=== PATIENT | male | born 1945 | race Caucasian/White ===

== ENCOUNTER 2019-07-24 10:28 | Emergency (ER) | payer MEDICARE, SELFPAY ==
[2019-07-24] VITALS (20 sets, daily range): BP systolic 90–119; BP diastolic 46–70; PULSE 72–96; RESP 15–37; TEMP 36.6; O2SAT 79–98
--- NOTE | ~2019-07-24 | CT_ITS ---
EXAMINATION: CT brain wo con DATE: 07/24/2019 12:28 INDICATION: Syncope. TECHNIQUE: Computed tomography (CT) of the head was performed without intravenous contrast. The mA wa s adjusted according to patient size. Iterative reconstruction technique was employed. The dose-lengt h product was 605.33 mGy-cm. COMPARISON: None FINDINGS: There are scattered areas of low attenuation in the cerebral white matter. There are old la cunar infarcts in the right thalamus and bilateral basal ganglia. There is no intracranial hemorrhage , acute infarction, or abnormal intracranial mass lesion. The ventricles are normal in size. There is mild mucosal thickening in the paranasal sinuses. There are likely changes of ocular lens replacemen t surgeries. The mastoid air cells are normal. IMPRESSION: 1. Old lacunar infarcts in the right thalamus and bilateral basal ganglia. 2. Moderate nonspecific cerebral white matter disease, which likely represents chronic small vessel i schemic disease. Reviewed, dictated and finalized at location A. TBAND SETTER LOCKSTITCH IMPRESSION: 1. Old lacunar infarcts in the right thalamus and bilateral basal ganglia. 2. Moderate nonspecific cerebral white matter disease, which likely represents chronic small vessel ischemic disease.
--- NOTE | ~2019-07-24 | CT_ITS ---
EXAMINATION: CTA chest PE abdomen pel DATE: 07/24/2019 12:28 INDICATION: Chest and abdominal pain. TECHNIQUE: Computed tomography angiography (CTA) of the chest was performed with 100 mL Omnipaque-350 intravenous contrast timed to evaluate the pulmonary arteries. Coronal maximum intensity projection 3D-reconstructions were created by the technologist. Computed tomography (CT) of the abdomen and pelv is was performed with intravenous contrast. Automated exposure control and iterative reconstruction t echnique were employed. The dose-length product was 1116.91 mGy-cm. COMPARISON: CT abdomen and pelvis 03/19/2019 FINDINGS: CTA chest: The lungs demonstrate mild atelectasis. There is a small left posterior diaphragmatic dasha ia dictated anything fat. No pleural effusion. The heart size is normal. There is a small pericardial effusion. There are coronary artery calcifications. There is no pulmonary embolus. There is a right shoulder arthroplasty. There is mild thoracic spondylosis. CT abdomen and pelvis: There are cysts in the liver measuring up to 2.1 cm. There is mild intrahepati c biliary duct dilatation with pneumobilia. There is an internal biliary stent in expected position. There is a 2.4 x 1.8 cm mass in the head of the pancreas, stable from 03/19/2019. The body and tail o f the pancreas demonstrate atrophy and dilatation of the pancreatic duct to 6 mm. The spleen and adre nal glands are normal. There is cortical thinning of the kidneys. There is a 2.6 cm cyst in right kid grzegorz. The prostate is mildly enlarged. There is diverticulosis of the colon without evidence of divert iculitis. There are no dilated loops of bowel. The appendix is not visualized. There is a 10 x 17 mm peripancreatic node. There is no free intraperitoneal fluid. There is severe lumbar spondylosis. IMPRESSION: 1. No pulmonary embolus. 2. Stable 2.4 cm mass in the head of the pancreas, consistent with primary adenocarcinoma. 3. Stable mildly enlarged peripancreatic lymph node, which is indeterminate for metastatic disease. Reviewed, dictated and finalized at location A. LE POINTED OPERATOR IMPRESSION: 1. No pulmonary embolus. 2. Stable 2.4 cm mass in the head of the pancreas, consistent with primary missy ocarcinoma. 3. Stable mildly enlarged peripancreatic lymph node, which is indeterminate for metastatic disease.
--- NOTE | 2019-07-24 10:39 | ECG_ITS ---
Measurements Intervals [place] Rate: 93 P: -3 MI: 213 QRS: -34 QRSD: 118 T: 35 QT: 342 QTc: 425 Interpretive Statements SINUS RHYTHM WITH FIRST DEGREE AV BLOCK INTRAVENTRICULAR CONDUCTION DELAY BORDERLINE R WAVE PROGRESSION, ANTERIOR LEADS BORDERLINE ST ABNORMALITY- LATERAL LEADS BASELINE ARTIFACT- I, III, AVL ABNORMAL ECG Electronically Signed On 07-24-2019 10:52:22 SOLUTION DEVELOPER by Carlos Enrique Orozco D.O.
[2019-07-24 11:02] LABS: Basophils Percent Auto 0.2 % (0.2-1.2); Eosinophils Percent Auto 0.2 % (0-4.4); Hematocrit 37.9 % (42.0-52.0); Hemoglobin 12.3 g/dL (14.0-18.0); Immature Granulocyte Absolute 0.02 K/mm3 (0.00-0.031); Immature Granulocyte Percent A 0.2 % (0-0.5); Immature Platelet Fraction Pct 3.6 % (0.9-11.2); Lymphocytes Absolute Auto 0.29 K/mm3 (0.9-3.2); Lymphocytes Percent Auto 3.5 % (18.3-44.2); Mean Corpuscular HGB Conc 32.5 g/dl (32-36); Mean Corpuscular Hemoglobin 31.5 pg (26-34); Mean Corpuscular Volume 97.2 fl (80-100); Mean Platelet Volume 10.9 fl (7.4-10.4); Monocytes Percent Auto 11.8 % (2.6-8.5); Neutrophils Percent Auto 84.1 % (45.5-73.1); Platelet Count Result 107 k/mm3 (150-375); Red Cell Distribution Width 16.1 % (11.5-14.5); White Blood Count 8.4 K/mm3 (4.5-10.0)
[2019-07-24 11:25] LABS: Blood Urea Nitrogen 15 mg/dL (9-20); Calcium 8.8 mg/dL (8.4-10.2); Carbon Dioxide 23 mmol/L (22-30); Chloride 97 mmol/L (98-107); Estimated CRCL calculation 85 ml/min; Estimated Glomerular Filt Rate > 60; Glucose 175 mg/dL (75-110); Sodium 134 mmol/L (137-145)
--- NOTE | 2019-07-24 11:42 | ED.SYNCOPE ---
HPI - Syncope General Chief Complaint: Syncope Stated Complaint: syncopal episoide Time Seen by Provider: 07/24/19 11:27 Source: patient Mode of arrival: ambulatory Limitations: no limitations History of Present Illness HPI narrative: Pt is a 74 y/o male who presents to the ED, secondary to a syncopal episode that happened this morning while he was in the shower. He states that his legs got weak and he vomited liquid matter. Pt reports burning ABD pain since 1:30AM, but notes that he was feeling better when he got up this morning and went to shower. He states that his ABD pain was moving to his chest. He denies CP in the ED bed. Pt has a H/O pancreatic CA and is being treated with chemotherapy. Per family, pt has been in more pain since starting chemotherapy and his pain medicine is not helping. Pt denies hitting his head during the fall and reports LOC. Per spouse, pt bent over and fell in the shower and she does not think that the pt hit his head. Spouse denies pt having any shaking activity. This morning he had some water and drank a boost. He was able to urinate this morning. His oncologist is Dr. Sanchez at [facility]. He is not on any blood thinners and he denies a H/o cardiac problems, lung problems, or COPD. Pt denies leg swelling or leg pain. MD complaint: loss of consciousness Prodromal symptoms: nausea/vomiting and other (ABD pain, leg weakness) Witnessed: Yes - by Bystander Context: standing up (in shower) Injuries sustained associated with event: none Related Data Home Medications Medication Instructions Recorded Confirmed gabapentin 300 mg capsule 600 mg PO TID 05/02/19 hydrochlorothiazide 25 mg tablet 25 mg PO DAILY 05/02/19 sjfhlw-xiayyxrc-xbcpvrp 1 cap PO QID 05/02/19 24,000-76,000-120,000 unit capsule,delayed rel glimepiride 2 mg tablet 4 mg PO QAM 05/25/19 cholecalciferol (vitamin D3) 1,250 50,000 unit PO WEEKLY 06/11/19 mcg (50,000 unit) capsule ondansetron 8 mg disintegrating 8 mg PO Q12H 06/11/19 tablet potassium chloride 20 mEq 20 meq PO BID tablet 06/11/19 tablet,extended release sertraline 50 mg tablet 50 mg PO DAILY 06/11/19 hydroxyzine HCl 50 mg PO Q6-12H PRN 07/24/19 meloxicam 15 mg PO DAILY 07/24/19 prochlorperazine maleate 10 mg PO Q6H PRN 07/24/19 Allergies Allergy/AdvReac Type Severity Reaction Status Date / Time methotrexate Allergy Severe mouth/tongue Verified 07/24/19 11:08 swelling Review of Systems Review of Systems: Narrative: CONSTITUTIONAL: Reports decreased intake CARDIOVASCULAR: Denies chest pain GASTROINTESTINAL: Reports ABD pain and vomiting. GENITOURINARY: Denies urinary problems MUSCULOSKELETAL: Reports leg weakness. Denies leg pain or swelling NEUROLOGIC: Reports syncope All systems reviewed & are unremarkable except as noted in HPI and below PMFSH Past Medical History Medical History (Updated 07/24/19 @ 13:46 by Connie Mcnamara MD) Arthritis Colitis Diabetes mellitus HTN (hypertension) IBS (irritable bowel syndrome) Pancreatic adenocarcinoma Peripheral neuropathy Polio Surgical History Surgical History (Updated 07/24/19 @ 13:24 by Tk Levin) H/O bilateral cataract extraction History of ankle surgery History of appendectomy History of arthroscopy of left shoulder History of back surgery History of elbow surgery History of total bilateral knee replacement Hx of tonsillectomy Status post bilateral knee replacements Status post shoulder replacement Status post wrist surgery Social History Social History Years smoked: 50 Smoking status: Former smoker Tobacco type: cigars Second hand tobacco smoke exposure: No Smoking end date: 04/09/19 Alcohol intake: never Substance use: never Substance use type: does not use Gender identity (if verbalized by the patient): Male Exam Narrative: Exam Narrative: GENERAL: Well-appearing, well-nourished, and in
[2019-07-24 12:31] LABS: INR 1.1; Prothrombin Time 13.8 Seconds (11.1-14.7)
[2019-07-24 12:32] LABS: Partial Thromboplastin Time 35.5 SECONDS (22.3-36.8)
[2019-07-24 12:45] LABS: Alanine Aminotransferase 78 U/L (4-50); Albumin Level 3.1 g/dL (3.5-5.1); Alkaline Phosphatase 180 U/L (38-126); Aspartate Amino Transferase 113 U/L (17-59); Bilirubin,Total 2.2 mg/dL (0.2-1.3); Blood Urea Nitrogen 16 mg/dL (9-20); Calcium 8.5 mg/dL (8.4-10.2); Carbon Dioxide 23 mmol/L (22-30); Chloride 97 mmol/L (98-107); Estimated CRCL calculation 85 ml/min; Estimated Glomerular Filt Rate > 60; Glucose 185 mg/dL (75-110); Lipase 27 U/L (23-300); Sodium 132 mmol/L (137-145)
[2019-07-24 12:51] LABS: Troponin I < 0.012 ng/mL (0.000-0.034)
[2019-07-24 13:03] LABS: Potassium 3.9 mmol/L (3.4-5.0)
[2019-07-24 13:28] LABS: Add Urine Microscopic? YES; Appearance Urine Clear (Clear); Bacteria Urine Trace /hpf; Bilirubin Urine 1+ (Negative); Blood Urine Negative (Negative); Color Urine Amber (Yellow); Glucose Urine UA 1+ mg/dL (Negative); Ketones Urine Negative (Negative); Leukocyte Esterase Ur Negative LEU/UL (Negative); Mucus Urine Heavy /lpf; Nitrate Urine Negative (Negative); Protein Urine 1+ mg/dL (Negative); RBC Urine 0-2 /hpf (0-2); Squamous Epithelial Cell Urine Rare /hpf (Few)
[2019-07-24 13:30] LABS: Specific Grav Ur 1.033 (1.001-1.035)
[2019-07-24] MEDS: SODIUM CHLORIDE 0.9% IV 1,000 ML 999 ML IV CONT (13:35)
[2019-07-24] MEDS: MAG HYDROX/AL HYDROX/SIMETH 30 ML UDC (13:36)
[2019-07-24] MEDS: ONDANSETRON INJ 4 MG/2 ML VIAL IV PUSH (13:36)
[2019-07-24] MEDS: BELLADONNA ALK/PHENOB ELIX 10 ML, MAG HYDROX/ALUMINUM HYD/SIMETH 30 ML, LIDOCAINE HCL 2... PO (13:37)
== END 2019-07-24 14:20 | disposition home or self-care (01) ==
PROVIDERS: Emergency Provider Emergency Medicine; PCP Family Medicine
DX: I95.1 Orthostatic hypotension (principal); C25.0 Malignant neoplasm of head of pancreas; I10 Essential (primary) hypertension; E11.42 Type 2 diabetes mellitus with diabetic polyneuropathy; K58.9 Irritable bowel syndrome, unspecified; M19.90 Unspecified osteoarthritis, unspecified site; Z86.12 Personal history of poliomyelitis; Z98.42 Cataract extraction status, left eye; Z98.41 Cataract extraction status, right eye; Z96.653 Presence of artificial knee joint, bilateral; Z96.619 Presence of unspecified artificial shoulder joint; Z87.891 Personal history of nicotine dependence; I44.0 Atrioventricular block, first degree; I45.9 Conduction disorder, unspecified; R94.31 Abnormal electrocardiogram [ECG] [EKG]; R90.82 White matter disease, unspecified; R82.998 Other abnormal findings in urine
CPT/HCPCS: 36415; 70450; 71275; 74177; 80048; 80053; 81001; 83690; 84484; 85025; 85055; 85610; 85730; 87086; 87088; 93005; 96361; 96374; 99284; A9270; J2405; J7030; Q9967

== ENCOUNTER 2019-11-30 08:10 | Outpatient (CLI) | payer MEDICARE, SELFPAY ==
[2019-11-30 08:34] LABS: Hematocrit 38.2 % (42.0-52.0); Hemoglobin 12.4 g/dL (14.0-18.0); Mean Corpuscular HGB Conc 32.5 g/dl (32-36); Mean Corpuscular Hemoglobin 30.4 pg (26-34); Mean Corpuscular Volume 93.6 fl (80-100); Mean Platelet Volume 10.6 fl (7.4-10.4); Platelet Count Result 183 k/mm3 (150-375); Red Blood Count 4.08 M/mm3 (4.6-6.20); Red Cell Distribution Width 14.7 % (11.5-14.5); White Blood Count 4.3 K/mm3 (4.5-10.0)
[2019-11-30 08:47] LABS: Alanine Aminotransferase 19 U/L (4-50); Albumin Level 3.8 g/dL (3.5-5.1); Alkaline Phosphatase 154 U/L (38-126); Aspartate Amino Transferase 34 U/L (17-59); Bilirubin,Total 0.8 mg/dL (0.2-1.3); Blood Urea Nitrogen 12 mg/dL (9-20); Calcium 9.2 mg/dL (8.4-10.2); Carbon Dioxide 30 mmol/L (22-30); Chloride 97 mmol/L (98-107); Cholesterol 102 mg/dL (0-200); Estimated Glomerular Filt Rate > 60; Glucose 124 mg/dL (75-110); HDL Direct 25 mg/dL; Potassium 3.5 mmol/L (3.4-5.0); Sodium 135 mmol/L (137-145); Triglycerides 117 mg/dL (<150)
[2019-11-30 08:55] LABS: Hemoglobin A1C 6.1 % (<5.7)
[2019-11-30 08:58] LABS: LDL Cholesterol Direct 44 mg/dL
[2019-11-30 09:54] LABS: Add Urine Microscopic? YES; Appearance Urine Clear (Clear); Bilirubin Urine Negative (Negative); Blood Urine Negative (Negative); Calcium Oxalate Crystals Urine Present /hpf; Color Urine Yellow (Yellow); Glucose Urine UA Negative (Negative); Ketones Urine Negative (Negative); Leukocyte Esterase Ur Negative LEU/UL (NEGATIVE); Mucus Urine Few /lpf; Nitrate Urine Negative (Negative); Protein Urine Negative (Negative); RBC Urine 21-50 /hpf (0-2); Specific Grav Ur 1.016 (1.001-1.035); Squamous Epithelial Cell Urine Rare /hpf (Few); WBC Urine 21-30 /hpf (0-3)
== END 2019-11-30 08:11 | disposition home or self-care (01) ==
LOC: ANHLAB 08:12
PROVIDERS: PCP Family Medicine; Visit Provider Family Medicine
DX: E11.49 Type 2 diabetes mellitus with other diabetic neurological complication (principal); I10 Essential (primary) hypertension; E11.9 Type 2 diabetes mellitus without complications; R53.83 Other fatigue
CPT/HCPCS: 36415; 80053; 80061; 81001; 83036; 84443; 85027

== ENCOUNTER 2020-05-03 17:07 | Inpatient (IN) | payer MEDICARE, SELFPAY ==
[2020-05-03] VITALS (10 sets, daily range): BP systolic 85–125; BP diastolic 53–76; PULSE 77–123; RESP 16–25; TEMP 36.1–36.2; O2SAT 95–100; BMI 20.7
--- NOTE | ~2020-05-03 | CT_ITS ---
EXAMINATION: CTA chest PE protocol DATE: 05/03/2020 19:04 INDICATION: Shortness of breath, syncope, history of pancreatic cancer TECHNIQUE: Computed tomography angiography (CTA) of the chest was performed with 100 mL Omnipaque-350 intravenous contrast timed to evaluate the pulmonary arteries. Coronal maximum intensity projection 3D-reconstructions were created by the technologist. The dose-length product (DLP) was 262.16 mGy-cm. Automated exposure control and iterative reconstruction technique were employed. COMPARISON: 07/24/2019 FINDINGS: The pulmonary arteries are well-opacified. Pulmonary emboli are noted in subsegmental branc hes of the left upper and lower lobes. There are small pleural effusions, left greater than right. Mi nimal dependent opacities are seen in the lungs. The heart size is normal. There is calcified coronar y artery atherosclerosis. A right internal jugular Port-A-Cath ends with its tip in the proximal righ t atrium. There are changes of right total shoulder arthroplasty. There is elevation of the right hem idiaphragm. There is a large volume of ascites in the upper abdomen. There has been interval surgica l change in the upper abdomen. There is moderate thoracic spondylosis. IMPRESSION: 1. Subsegmental emboli in the left upper and lower lobes. These findings were discussed with Dr. Dajuan Washburn MD in the Emergency Department at 1925 hours on 05/03/2020. 2. Large volume of abdominal ascites. 3. Small pleural effusions, left greater than right. Reviewed, dictated and finalized at location A. T PHLEBOTOMIST IMPRESSION: 1. Subsegmental emboli in the left upper and lower lobes. These findings were d iscussed with Dr. Dajuan Washburn MD in the Emergency Department at 1925 hours o n 05/03/2020. 2. Large volume of abdominal ascites. 3. Small pleural effusions, left greater than right.
--- NOTE | ~2020-05-03 | XR_ITS ---
EXAMINATION: XR chest 2V DATE: 05/03/2020 18:20 INDICATION: Shortness of breath TECHNIQUE: AP and lateral views of the chest are obtained. COMPARISON: 02/05/2019 FINDINGS: There has been interval insertion of a right internal jugular Port-A-Cath. There is mild el evation of the right hemidiaphragm. Airspace opacities are present in the lung bases. No definite ple ural effusion or pneumothorax is identified. The cardiomediastinal silhouette is stable. There are ch anges of right total shoulder arthroplasty. IMPRESSION: 1. Airspace opacities of the lung bases, consistent with atelectasis versus pneumonia. Reviewed, dictated and finalized at location A. AL ATTENDANTS AND TRAINERS IMPRESSION: 1. Airspace opacities of the lung bases, consistent with atelectasis versus pne umonia.
--- NOTE | ~2020-05-03 | US_ITS ---
EXAMINATION: US venous doppler [facility] DATE: 05/04/2020 16:01 INDICATION: Shortness of breath, pulmonary embolism TECHNIQUE: Goetz scale images without and with compression and Doppler images of the bilateral lower e xtremity veins were obtained. COMPARISON: None FINDINGS: The right common femoral vein, profunda femoral vein, femoral vein, popliteal vein, peroneal trunk, p osterior tibial veins, and greater saphenous vein are patent. The left common femoral vein, profunda femoral vein, femoral vein, popliteal vein, peroneal trunk, po sterior tibial veins, and greater saphenous vein are patent. IMPRESSION: 1. Patent bilateral lower extremity veins. No evidence of deep venous thrombosis. Reviewed, dictated and finalized at location A. ORING MACHINE OPERATOR IMPRESSION: 1. Patent bilateral lower extremity veins. No evidence of deep venous thrombosi s.
--- NOTE | 2020-05-03 17:17 | ECG_ITS ---
Measurements Intervals [place] Rate: 132 P: [place]: 0 QRS: -38 QRSD: 125 T: 128 QT: 323 QTc: 479 Interpretive Statements ATRIAL FIBRILLATION WITH RAPID VENTRICULAR RESPONSE VENTRICULAR PREMATURE COMPLEXES LEFT AXIS DEVIATION INTRAVENTRICULAR CONDUCTION DELAY BORDERLINE R WAVE PROGRESSION, ANTERIOR LEADS ST-T WAVE ABNORMALITY IN HIGH LATERAL LEADS- CONSIDER ISCHEMIA ABNORMAL ECG Electronically Signed On 05-04-2020 9:16:33 INTERNET SALES REPRESENTATIVE by Carlos Enrique Orozco D.O.
--- NOTE | 2020-05-03 17:26 | ED.SYNCOPE ---
HPI - Syncope General Chief Complaint: Syncope Stated Complaint: SYNCOPAL EVENT Time Seen by Provider: 05/03/20 17:17 Source: patient and family Mode of arrival: ambulatory Limitations: no limitations History of Present Illness HPI narrative: 75-year-old male History of pancreatic cancer, status post Whipple procedure, and being actively treated at site man with his last chemo being 4 days ago Patient complains that he was simply walking down the [place] when he became suddenly lightheaded and fell He skinned his elbow and he skinned his knee He denies any chest pain Denies hitting his head or any neck pain He was not aware of any kind of rapid or irregular heartbeat nor does he know of any previous history of atrial fibrillation Related Data Home Medications Medication Instructions Recorded Confirmed aspirin 81 mg tablet,delayed 81 mg PO DAILY 04/07/20 release blood sugar diagnostic #10 ea 04/07/20 cholecalciferol (vitamin D3) 1,250 1,250 mcg PO WEEKLY 04/07/20 mcg (50,000 unit) capsule diphenoxylate-atropine 2.5 1 tablet PO QID PRN 04/07/20 mg-0.025 mg tablet lidocaine-prilocaine 2.5 %-2.5 % 1 applic TOPICAL .prn g 04/07/20 topical cream bosbwq-uwctgmft-yhuqkvn 2 cap PO TID cap 04/07/20 24,000-76,000-120,000 unit capsule,delayed rel oxycodone 5 mg tablet 5 mg PO Q4H PRN 04/07/20 pantoprazole 40 mg tablet,delayed 40 mg PO BID tablet 04/07/20 release potassium chloride 20 mEq 20 meq PO DAILY 04/07/20 tablet,extended release prochlorperazine maleate 10 mg 10 mg PO Q6H PRN 04/07/20 tablet sertraline 25 mg tablet 25 mg PO DAILY 04/07/20 simethicone 250 mg capsule 250 mg PO DAILY PRN 04/07/20 Allergies Allergy/AdvReac Type Severity Reaction Status Date / Time methotrexate Allergy Severe mouth/tongue Verified 05/03/20 17:11 swelling Review of Systems Constitutional: Constitutional: Reports fatigue and Reports weakness Eyes: Eyes: Denies change in vision ENT: Denies nasal congestion and Denies sore throat Cardiovascular: Cardiovascular: Denies chest pain and Denies rapid heart rate Respiratory: Respiratory: Denies cough and Denies dyspnea Gastrointestinal: Gastrointestinal: Denies constipation, Denies diarrhea and Reports nausea Comments: Poor appetite Genitourinary: Genitourinary: Denies dysuria and Denies urinary frequency Musculoskeletal: Musculoskeletal: Reports back pain and Reports myalgias Integumentary/Breasts: Skin/Breast: Denies rash Neurologic: Reports dizziness, Reports syncope, Denies focal weakness and Reports weakness Endocrine: Endocrine: Denies excessive sweating and Denies polyuria Hematologic/Lymphatic: Hematologic/Lymphatic: Denies easy bleeding PMFSH Past Medical History Medical History (Updated 05/03/20 @ 17:46 by Dajuan Washburn MD) Arthritis Colitis Diabetes mellitus HTN (hypertension) IBS (irritable bowel syndrome) Pancreatic adenocarcinoma Peripheral neuropathy Polio Surgical History Surgical History (Updated 07/24/19 @ 13:24 by Tk Levin) H/O bilateral cataract extraction History of ankle surgery History of appendectomy History of arthroscopy of left shoulder History of back surgery History of elbow surgery History of total bilateral knee replacement Hx of tonsillectomy Status post bilateral knee replacements Status post shoulder replacement Status post wrist surgery Family History Family History Mother Family history of diabetes mellitus in first degree relative Family history of coronary artery disease Sibling Family history of diabetes mellitus in first degree relative Family history of coronary artery disease Father Family history of coronary artery disease Other Diabetes mellitus Hypertension Social History Social History Years smoked: 50 Smoking status: Former
[2020-05-03 17:39] LABS: Basophils Percent Auto 0.3 % (0.2-1.2); Eosinophils Percent Auto 0.8 % (0-4.4); Hematocrit 26.1 % (42.0-52.0); Hemoglobin 8.3 g/dL (14.0-18.0); Immature Granulocyte Absolute 0.04 K/mm3 (0.00-0.031); Immature Granulocyte Percent A 1.1 % (0-0.5); Lymphocytes Absolute Auto 0.38 K/mm3 (0.9-3.2); Lymphocytes Percent Auto 10.5 % (18.3-44.2); Mean Corpuscular HGB Conc 31.8 g/dl (32-36); Mean Corpuscular Hemoglobin 29.5 pg (26-34); Mean Corpuscular Volume 92.9 fl (80-100); Mean Platelet Volume 11.2 fl (7.4-10.4); Monocytes Percent Auto 0.8 % (2.6-8.5); Neutrophils Absolute Auto 3.1 K/mm3 (1.3-6.7); Neutrophils Percent Auto 86.5 % (45.5-73.1); Platelet Count Result 91 k/mm3 (150-375); Red Blood Count 2.81 M/mm3 (4.6-6.20); Red Cell Distribution Width 15.3 % (11.5-14.5); White Blood Count 3.6 K/mm3 (4.5-10.0)
[2020-05-03] MEDS: LACTATED RINGERS 1,000 ML 150 ML IV CONT (17:41)
[2020-05-03] MEDS: dilTIAZem HCl INJ 25 MG/5 ML VIAL 15 MG IV PUSH (17:41)
[2020-05-03 17:45] LABS: INR 1.2; Prothrombin Time 15.9 Seconds (11.1-14.7)
[2020-05-03 17:51] LABS: Alanine Aminotransferase 21 U/L (4-50); Albumin Level 2.3 g/dL (3.5-5.1); Alkaline Phosphatase 146 U/L (38-126); Anion Gap 5 mmol/L (8-16); Aspartate Amino Transferase 33 U/L (17-59); Bilirubin,Total 1.4 mg/dL (0.2-1.3); Blood Urea Nitrogen 17 mg/dL (9-20); Calcium 7.9 mg/dL (8.4-10.2); Carbon Dioxide 25 mmol/L (22-30); Chloride 102 mmol/L (98-107); Estimated CRCL calculation 87 ml/min; Estimated Glomerular Filt Rate > 60; Glucose 241 mg/dL (75-110); Magnesium 1.6 mg/dL (1.6-2.3); Sodium 132 mmol/L (137-145)
[2020-05-03 18:00] LABS: Anisocytosis 1+ (NORMAL); Hypochromasia 1+ (NORMAL); Platelet Estimate Decreased (Adequate)
[2020-05-03 18:03] LABS: Troponin I < 0.012 ng/mL (0.000-0.034)
[2020-05-03] MEDS: LACTATED RINGERS 1,000 ML 500 ML IV CONT (19:44)
--- NOTE | 2020-05-03 20:15 | PM.IMHP ---
H&P: HPI History of Present Illness Date/Time: 05/03/20 20:15 Chief complaint: syncope, paroxysmal atrial fibrillation Narrative: Lamont Rose is a 75 year old male with past medical history type 2 diabetes, hypertension, IBS, pancreatic adenocarcinoma status post whipple undergoing chemotherapy last dose 4 days ago who presents to the ED with complaints of syncopal episode. Patient is otherwise healthy male and was diagnosed with pancreatic cancer earlier this year. In September he had surgery resection whipple procedure at [facility] and started chemotherapy. He is not sure what his chemotherapy regimen is. He does not know of ever being in any arrhythmia. He denies taking any can stimulants. Denies any fevers or chills or nausea or any infection. He has no sick contacts. No recent travels. In the ED: On CTA chest patient was found to have subsegmental emboli in left upper and lower lobes. Patient was in AFib with RVR converted to sinus rhythm with diltiazem. Is a little hypotensive responding to fluids. Patient was admitted for AFib with RVR and syncope. Date of service 05/03/2020 Review of Systems Review of Systems: Narrative: Constitutional: No Fever, No Chills, No Night Sweats, No Fatigue, No Malaise ENT/Mouth: No Hearing Changes, No Ear Pain, No Nasal Congestion, No Sinus Pain, No Hoarseness, No sore throat, No Rhinorrhea, No Swallowing Difficulty Eyes: No Eye Pain, No Redness, No Vision Changes Cardiovascular: No Chest Pain, No Palpitations, No Dyspnea on Exertion, No Orthopnea, No Claudication, No Edema Respiratory: No Cough, No Sputum, No Wheezing, No Shortness of Breath Gastrointestinal: No Nausea, No Vomiting, No Diarrhea, No Constipation, No Abdominal Pain, No Heartburn, No Hematochezia, No Melena Genitourinary: No Dysuria, No Urinary Frequency, No Hematuria, No Urinary Incontinence, No Urgency Musculoskeletal: No Arthralgias, No Myalgias, No Joint Swelling, No Joint Stiffness, No Back Pain Skin: No Skin Lesions, No Pruritis, No Hair Changes Neuro: No Weakness, No Numbness, No Paresthesias, No Dizziness, No Headache. Endorses syncope, temporary loss of consciousness. Psych: No Anxiety/Panic, No Depression, No Insomnia Heme: No Bruising, No Bleeding Lymph: No Adenopathy Endocrine: No Polyuria, No Polydipsia, No Temperature Intolerance [facility] Past Medical History Medical History Arthritis Colitis Diabetes mellitus HTN (hypertension) IBS (irritable bowel syndrome) Pancreatic adenocarcinoma Peripheral neuropathy Polio Surgical History Surgical History H/O bilateral cataract extraction History of ankle surgery History of appendectomy History of arthroscopy of left shoulder History of back surgery History of elbow surgery History of total bilateral knee replacement Hx of tonsillectomy Status post bilateral knee replacements Status post shoulder replacement Status post wrist surgery Family History Family History Mother Family history of diabetes mellitus in first degree relative Family history of coronary artery disease Hypertension Diabetes mellitus Sibling Family history of diabetes mellitus in first degree relative Family history of coronary artery disease Diabetes mellitus Father Family history of coronary artery disease Hypertension Social History Social History Years smoked: 30 Smoking status: Former smoker Tobacco type: cigars Second hand tobacco smoke exposure: No Smoking end date: 04/09/19 Alcohol intake: never Substance use: never Substance use type: does not use Gender identity (if verbalized by the patient): Male Sexual Orientation (if Verbalized by the Patient): Straight or Heterosexual Spiritual care concerns: No
[2020-05-04] VITALS (15 sets, daily range): BP systolic 88–116; BP diastolic 45–84; PULSE 73–83; RESP 16–18; TEMP 36–36.7; O2SAT 97–100
[2020-05-04] MEDS: APIXABAN 5 MG TABLET 10 MG PO ×3 (00:24→19:00)
[2020-05-04] MEDS: LACTATED RINGERS 1,000 ML 125 ML IV CONT (02:49)
[2020-05-04] MEDS: oxyCODONE HCL (*CRX) 5 MG TAB IR PO (04:39)
[2020-05-04] MEDS: LIPASE/AMYLASE/PROTEASE 12,000 UNITS CAP 4 CAP PO (08:51)
[2020-05-04] MEDS: ASPIRIN 81 MG ENTERIC TABLET PO (08:51)
[2020-05-04] MEDS: METOPROLOL SUCCINATE EXT REL 12.5 MG TABCR PO (08:52)
[2020-05-04] MEDS: SERTRALINE HCL 25 MG TABLET PO (08:52)
--- NOTE | 2020-05-04 17:20 | PM.DS ---
DS: Admitting Diagnosis Admitting Diagnosis Admitting Diagnosis: syncope, paroxysmal atrial fibrillation DS: Discharge Diagnosis Discharge Diagnosis (1) Syncope: Qualifiers: Syncope type: unspecified Qualified Code(s): R55 - Syncope and collapse Code(s): R55 - Syncope and collapse Status: Acute Assessment and Plan: Likely secondary to the new onset AFib, hypotension and PE. He was treated with IV fluids with improvement in BP to 108/64. He was not orthostatic. Echocardiogram ordered and is pending. No dizziness with standing. Walking to the bathroom. No recurrent episodes. (2) Paroxysmal atrial fibrillation: Code(s): I48.0 - Paroxysmal atrial fibrillation Status: Acute Assessment and Plan: Patient found to be AFib with RVR and converted to sinus rhythm in ED after a dose of diltiazem. Appears to be new onset and felt provoked by the PE and/or recent chemotherapy. CHADS2 Vasc 4. Echo pending. TSH normal. Toprol-XL 12.5 mg daily started. On Eliquis for PE (3) Pulmonary embolism: Qualifiers: Pulmonary embolism type: other Chronicity: acute Acute cor pulmonale presence: without acute cor pulmonale Qualified Code(s): I26.99 - Other pulmonary embolism without acute cor pulmonale Code(s): I26.99 - Other pulmonary embolism without acute cor pulmonale Status: Acute Assessment and Plan: CTA on admission showing subsegmental emboli in the left upper and lower lobes provoked PE likely secondary to pancreatic cancer. Not requiring O2. Patient started on Eliquis 10 mg b.i.d. for 1 week then 5 mg b.i.d. Doppler negative for DVT. Risks/benefits of Eliquis discussed. (4) Pancreatic cancer: Qualifiers: Pancreatic malignancy location: unspecified Qualified Code(s): C25.9 - Malignant neoplasm of pancreas, unspecified Code(s): C25.9 - Malignant neoplasm of pancreas, unspecified Status: Acute Assessment and Plan: Patient undergoing chemotherapy but unclear what regimen he is on. CT scan showing large volume of ascites and small bilateral pleural effusions. We continued his Creon and other home meds. DS: Summary Hospital Course Reason for hospitalization: 75yo male with pancreatic cancer s/p Wipple procedure and actively being treated at [facility] with last Chemo about 4 landin ago here for lightheadedness and fall. Please see H&P for details. Hospital Course: Please see details of hospital coarse above. Status at Discharge Cognitive/behavioral status at discharge: PATIENT STABLE FOR DISCHARGE Time Spent with Patient Time attestation: Total time spent providing and/or coordinating discharge services: 32 minutes Time spent: Greater than 30 minutes Exam Narrative: Exam Narrative: No CP or SOB. Slept poorly. No orthopnea symptoms. Eating okay. Sl nausea but no vomiting or diarrhea. No melena or hematochezia. No hematuria. No dizziness with standing AF 97.4 116/84 78 16 99% Gen - thin male in NARD Chest - CTA bilaterally, nml RR CV - RRR S1/S2; Tele showing PVCs but no recurrent AFib Abd - soft NT/ND, +BS. Upper abd nonobstructing incisional hernia Ext - trace LE edema Psych - pleasant and cooperative. DS: Data Data Completed and Pending Labs on day of discharge: Labs from last 24 hours 05/03/20 05/03/20 05/03/20 17:30 17:28 17:28 WBC RBC Hgb Hct MCV MCH MCHC RDW Plt Count MPV Immature Gran % (Auto) Neut % (Auto) Lymph % (Auto) [place] % (Auto) Eos % (Auto) Baso % (Auto) Lymph # (Auto) [place] # (Auto) Eos # (Auto) Baso # (Auto) Abs Immat Gran (auto) Absolute Neuts (auto) Absolute Nucleated RBC Nucleated RBC % Platelet Estimate Hypochromasia Anisocytosis PT 15.9 H INR 1.2 Sodium 132 L Potassium 4.0 Chloride 102 Carbon Dioxide 25 Anion Gap 5 L BUN 17 Creatinin
[2020-05-04] MEDS: HEPARIN SOD FLUSH 500 UNITS/5 ML SYRINGE IV PUSH (18:45)
--- NOTE | 2020-05-12 14:46 | PC.NURSE ---
Blood cx is negative. Dr. Jerome dubose.
== END 2020-05-04 19:13 | disposition home or self-care (01) | DRG 308 ==
LOC: ANHED 20:06 → ANHIMU 05-04 06:55
PROVIDERS: Physician Assistant; Admitting Provider Family Medicine; Emergency Provider Emergency Medicine; PCP Family Medicine; Visit Provider Student in an Organized Health Care Education/Training Program
DX: I48.0 Paroxysmal atrial fibrillation (principal); I26.99 Other pulmonary embolism without acute cor pulmonale; C25.9 Malignant neoplasm of pancreas, unspecified; E11.9 Type 2 diabetes mellitus without complications; I10 Essential (primary) hypertension
CPT/HCPCS: 36415; 71046; 71275; 80053; 83735; 84484; 85025; 85610; 87040; 93005; 93970; 96361; 96374; 97161; 99285; A9270; J7120; Q9967

== ENCOUNTER 2020-07-04 11:42 | Emergency (ER) | payer MEDICARE, SELFPAY ==
[2020-07-04] VITALS (35 sets, daily range): BP systolic 73–126; BP diastolic 54–93; PULSE 72–85; RESP 13–26; TEMP 36.4; O2SAT 86–100
--- NOTE | ~2020-07-04 | XR_ITS ---
EXAMINATION: XR chest 1V portable INDICATION: Transient alteration of awareness TECHNIQUE: Portable AP chest at 1611 hours COMPARISON: 05/03/2020 FINDINGS: A right internal jugular Port-A-Cath ends with its tip at the superior cavoatrial junction. The lungs are free of acute opacities. There is no pleural effusion or pneumothorax. Partially image d changes of right total shoulder arthroplasty are noted. IMPRESSION: 1. No acute cardiopulmonary abnormality. Reviewed, dictated and finalized at location A. ORM ATTENDANT
--- NOTE | ~2020-07-04 | CT_ITS ---
EXAMINATION: CT brain wo con INDICATION: Multiple syncopal episodes COMPARISON: 07/24/2019 TECHNIQUE: Standard unenhanced head CT. The dose-length product (DLP) was 681.00 mGy-cm. The mA was a djusted according to patient size. Iterative reconstruction technique was employed. FINDINGS: There is no acute intraparenchymal hemorrhage. No evidence of mass lesion. No evidence of a cute infarction. 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 There is m ild periventricular and subcortical hypodensity probably related to small vessel ischemic disease. Th ere is mild prominence of the sulci and ventricles related to cerebral atrophy. Intracranial calcifie d cerebral atherosclerosis is noted. There are no extra-axial collections. There is no mass effect or midline shift. Changes in the globes are likely from ocular lens surgery. The visualized sinuses an d mastoid air cells are well aerated. IMPRESSION: 1. Areas of prior infarction without acute intracranial abnormality. 2. Age related findings. Reviewed, dictated and finalized at location A. MENTAL METAL ERECTOR
--- NOTE | 2020-07-04 12:05 | ECG_ITS ---
Measurements Intervals [place] Rate: 77 P: 83 ME: 222 QRS: -39 QRSD: 132 T: 107 QT: 412 QTc: 468 Interpretive Statements SINUS RHYTHM WITH FIRST DEGREE AV BLOCK LEFT AXIS DEVIATION INTRAVENTRICULAR CONDUCTION DELAY CANNOT RULE OUT SEPTAL INFARCT, AGE INDETERMINATE ST-T WAVE ABNORMALITY IN HIGH LATERAL LEADS- CONSIDER ISCHEMIA ABNORMAL ECG Electronically Signed On 07-04-2020 12:29:56 HEAD TURBINE OPERATOR by Carlos Enrique Orozco D.O.
[2020-07-04 12:39] LABS: Glucose Point of Care 177 (65-105)
--- NOTE | 2020-07-04 12:47 | PC.NURSE ---
Called Di garza, added on CMP, CK, Trop I, and CBCD [id number]
[2020-07-04 12:54] LABS: Basophils Percent Auto 0.3 % (0.2-1.2); Eosinophils Absolute Auto 0.1 K/mm3 (0-0.3); Eosinophils Percent Auto 3.5 % (0-4.4); Hematocrit 29.1 % (42.0-52.0); Hemoglobin 9.2 g/dL (14.0-18.0); Immature Granulocyte Absolute 0.01 K/mm3 (0.00-0.031); Immature Granulocyte Percent A 0.3 % (0-0.5); Lymphocytes Absolute Auto 0.43 K/mm3 (0.9-3.2); Lymphocytes Percent Auto 14.9 % (18.3-44.2); Mean Corpuscular HGB Conc 31.6 g/dl (32-36); Mean Corpuscular Hemoglobin 28.9 pg (26-34); Mean Corpuscular Volume 91.5 fl (80-100); Monocytes Absolute Auto 0.6 K/mm3 (0.1-0.6); Monocytes Percent Auto 19.7 % (2.6-8.5); Neutrophils Absolute Auto 1.8 K/mm3 (1.3-6.7); Neutrophils Percent Auto 61.3 % (45.5-73.1); Platelet Count Result 107 k/mm3 (150-375); Red Blood Count 3.18 M/mm3 (4.6-6.20); Red Cell Distribution Width 16.3 % (11.5-14.5); White Blood Count 2.9 K/mm3 (4.5-10.0)
[2020-07-04 13:06] LABS: Alanine Aminotransferase 27 U/L (4-50); Albumin Level 2.4 g/dL (3.5-5.1); Alkaline Phosphatase 127 U/L (38-126); Anion Gap 4 mmol/L (8-16); Aspartate Amino Transferase 40 U/L (17-59); Bilirubin,Total 0.5 mg/dL (0.2-1.3); Blood Urea Nitrogen 12 mg/dL (9-20); Calcium 8.4 mg/dL (8.4-10.2); Carbon Dioxide 27 mmol/L (22-30); Chloride 100 mmol/L (98-107); Estimated CRCL calculation 78 ml/min; Estimated Glomerular Filt Rate > 60; Glucose 189 mg/dL (75-110); Sodium 131 mmol/L (137-145)
[2020-07-04 13:17] LABS: Troponin I < 0.012 ng/mL (0.000-0.034)
[2020-07-04 13:19] LABS: Creatine Kinase < 20 U/L (55-170)
--- NOTE | 2020-07-04 13:20 | ED.SYNCOPE ---
HPI - Syncope General Chief Complaint: Syncope Stated Complaint: syncope, pancreatic CA Time Seen by Provider: 07/04/20 12:08 Source: patient and family Mode of arrival: EMS Limitations: no limitations History of Present Illness HPI narrative: A 75-year-old male comes into the emergency department today with complaints of weakness and fatigue causing a syncopal episode. His states that he has a history of pancreatic cancer and has been having issues with passing out. They deny any falls or injuries. Patient states he just feels generally weak. His states that she notes that his blood pressure has been very low. She notes that he is still drinking water. She doubts dehydration. Related Data Home Medications Medication Instructions Recorded Confirmed aspirin 81 mg tablet,delayed 81 mg PO DAILY 04/07/20 06/13/20 release blood sugar diagnostic #10 ea 04/07/20 06/13/20 diphenoxylate-atropine 2.5 1 tablet PO QID PRN 04/07/20 06/13/20 mg-0.025 mg tablet [id number] See Rx Instructions .ROUTE 04/07/20 06/13/20 24,000-76,000-120,000 unit .COMPLEX cap capsule,delayed rel oxycodone 5 mg tablet 5 mg PO Q4H PRN 04/07/20 06/13/20 prochlorperazine maleate 10 mg 10 mg PO Q6H PRN 04/07/20 06/13/20 tablet sertraline 25 mg tablet 25 mg PO DAILY 04/07/20 06/13/20 simethicone 250 mg capsule 250 mg PO DAILY PRN 04/07/20 06/13/20 Lidocaine Viscous 1 applic MUCOUS MEMBRANE QID PRN 05/04/20 06/13/20 Allergies Allergy/AdvReac Type Severity Reaction Status Date / Time methotrexate Allergy Severe mouth/tongue Verified 07/04/20 11:52 swelling Review of Systems Review of Systems: Narrative: CONSTITUTIONAL: Denies fever, chills, or sweats. EYES: Denies visual changes, redness, or discharge. ENT: Denies rhinorrhea, congestion, sore throat, or otalgia. CARDIOVASCULAR: Denies chest pain, palpitations, or edema. RESPIRATORY: Denies cough or dyspnea. GASTROINTESTINAL: Denies abdominal pain, nausea, vomiting, or diarrhea. GENITOURINARY: Denies dysuria or hematuria. SKIN: Denies rash or itching. MUSCULOSKELETAL: Denies back pain, joint pain, or myalgia. NEUROLOGIC: Denies headache, numbness, dizziness. Endorses generalized weakness. PSYCHIATRIC: Denies anxiety or depression. FORMERLY [facility], 1928–1983 Past Medical History Medical History Arthritis Colitis Diabetes mellitus HTN (hypertension) IBS (irritable bowel syndrome) Pancreatic adenocarcinoma Peripheral neuropathy Polio Surgical History Surgical History H/O bilateral cataract extraction History of ankle surgery History of appendectomy History of arthroscopy of left shoulder History of back surgery History of elbow surgery History of total bilateral knee replacement Hx of tonsillectomy Status post bilateral knee replacements Status post shoulder replacement Status post wrist surgery Family History Family History Mother Family history of diabetes mellitus in first degree relative Family history of coronary artery disease Hypertension Diabetes mellitus Sibling Family history of diabetes mellitus in first degree relative Family history of coronary artery disease Diabetes mellitus Father Family history of coronary artery disease Hypertension Social History Social History Years smoked: 30 Smoking status: Former smoker Tobacco type: cigars Second hand tobacco smoke exposure: No Smoking end date: 04/09/19 Alcohol intake: never Substance use: never Substance use type: does not use Gender identity (if verbalized by the patient): Male Spiritual care concerns: No Exam Narrative: Exam Narrative: GENERAL: Well-appearing, well-nourished, and in no acute distress. HEAD: Normocephalic, atraumatic. EYES: PERRLA and EOMI. ENT: Nares
[2020-07-04] MEDS: LACTATED RINGERS 2,000 ML 999 ML IV CONT (14:09)
[2020-07-04 15:05] LABS: Add Urine Microscopic? NO; Appearance Urine Clear (Clear); Bacteria Urine Trace /hpf; Bilirubin Urine Negative (Negative); Blood Urine Negative (Negative); Calcium Oxalate Crystals Urine Present /hpf; Color Urine Yellow (Yellow); Glucose Urine UA Negative (Negative); Ketones Urine Negative (Negative); Leukocyte Esterase Ur Negative LEU/UL (Negative); Mucus Urine Heavy /lpf; Nitrate Urine Negative (Negative); Protein Urine Negative (Negative); Specific Grav Ur 1.015 (1.001-1.035); Squamous Epithelial Cell Urine Rare /hpf (Few); Urobilinogen Urine Negative mg/dL (<2.0); WBC Urine 0-3 /hpf
== END 2020-07-04 18:30 | disposition home or self-care (01) ==
PROVIDERS: Emergency Medicine; Emergency Provider Emergency Medicine; PCP Family Medicine
DX: I95.1 Orthostatic hypotension (principal); C25.9 Malignant neoplasm of pancreas, unspecified; M19.90 Unspecified osteoarthritis, unspecified site; I10 Essential (primary) hypertension; K58.9 Irritable bowel syndrome, unspecified; E11.42 Type 2 diabetes mellitus with diabetic polyneuropathy; Z86.12 Personal history of poliomyelitis; Z98.42 Cataract extraction status, left eye; Z98.41 Cataract extraction status, right eye; Z96.653 Presence of artificial knee joint, bilateral; Z96.619 Presence of unspecified artificial shoulder joint; Z87.891 Personal history of nicotine dependence; I44.0 Atrioventricular block, first degree; I45.9 Conduction disorder, unspecified; R94.31 Abnormal electrocardiogram [ECG] [EKG]; Z79.82 Long term (current) use of aspirin; Z79.84 Long term (current) use of oral hypoglycemic drugs; Z79.01 Long term (current) use of anticoagulants
CPT/HCPCS: 36415; 70450; 71045; 80053; 81003; 82550; 82948; 84484; 85025; 93005; 96360; 99284; J7120